=== PATIENT | female | born 1980 | race Two or more races ===

== ENCOUNTER 2024-10-20 15:30 | Outpatient (RCR) | payer MEDICAID, SELFPAY ==
--- NOTE | 2024-10-11 15:54 | PT.OIERPT ---
PT OP Initial Eval Patient Information Outpatient Physical Therapy Treatment Date: 10/11/24 Visit Reasons: Sciatica left side/lower limb Medical Diagnosis: M54.32 Treatment Dx #1: Back Pain Treatment Dx #2: Left LE Pain Start of Care: 10/11/24 Date of Onset: 1.5 years ago Smoking Status Smoking Status: Never smoker Initial Assessment Subjective: Pt is a 44 y/o female reports of chronic back pain with left LE numbness. Pt has limitation with work duties, standing, bending, lifting, chores, and performing recreational activities. No MRI has been done; according to patient provider plans to order MRI post physical therapy. Objective: L/S AROM: all motions are WFL except pain with extension Hip PROM: all motions are WNL Hip MMTs: grossly 3+/5 Special Test (+) CRISTÓBAL's (+) Vipul test Assessment: Pt demonstrate back pain with possible disc involvement leading to difficulty with ADLs. Pt will attempt physical therapy if pain persist Pt will be refer back to provider for further consultation. [employer] Goals 1) Increase L/S AROM WNL in 6 wks to be able to perform chores 2) Decrease back pain to 2/10 in 6 wks to be able to sit and stand more than 30 mins 3) Increase core strength WFL in 6 wks to be able to perform recreational activities 4) Increase hip MMTs grossly to 4-/5 in 6 wks to be able to walk more than 30 mins 5) Indep with HEP Treatment Plan 1) Manual Therapy 2) Therapeutic Activities 3) Therapeutic Exercises 4) Modalities (ice, heat, traction) Frequency and Duration: 2 x wk for 6 wks Certification Dates: 10/11/24 to 01/09/25 Procedure Charges OP PT Eval Mod Complex 30 minutes: Yes
--- NOTE | 2024-10-20 16:09 | PT.ODAYNRPT ---
PT Outpatient Daily Note OP Daily Note Outpatient Physical Therapy Treatment Date: 10/20/24 Visit Reasons: Sciatica left side/lower limb Subjective: Pt's back is okay, however, continues to have the pain down her leg. Objective: Please see flow chart for list of ther ex perfomed Assessment: tolerate exercises with minimal pain Plan: Continue with PT Length of Time (minutes) of Treatment: 30 Minutes Procedure Charges Therapeutic Exercise 30 minutes: Yes
== END 2024-10-22 23:59 | disposition home or self-care (01) ==
LOC: CPTX 15:30
PROVIDERS: PCP Physician Assistant; Referring Provider Physician Assistant; Visit Provider Physician Assistant
DX: M54.32 Sciatica, left side (principal)
CPT/HCPCS: 97110; 97162

== ENCOUNTER 2024-11-17 15:00 | Outpatient (RCR) | payer MEDICAID, SELFPAY ==
--- NOTE | 2024-10-27 15:56 | PT.ODAYNRPT ---
PT Outpatient Daily Note OP Daily Note Outpatient Physical Therapy Treatment Date: 10/27/24 Visit Reasons: BACK PAIN Subjective: Pt's back feels sore from last session. Today it feels good. Pt still notice intermittent pain down the left leg. Objective: Please see flow chart for list of ther ex performed Assessment: tolerate exercises performed with minimal pain Plan: Continue with PT Length of Time (minutes) of Treatment: 30 Minutes Procedure Charges Therapeutic Exercise 30 minutes: Yes
--- NOTE | 2024-11-17 15:36 | PT.ODAYNRPT ---
PT Outpatient Daily Note OP Daily Note Outpatient Physical Therapy Treatment Date: 11/17/24 Visit Reasons: BACK PAIN Subjective: Pt reports LBP and numbing sensation of L thigh. Objective: Please see flow sheet for ther ex list. Assessment: Pt responds to repeated lumbar extension with slight decrease in L thigh symptoms, pt encouraged to perform for HEP. Plan: Assess response to HEP. Continue with pOC. Length of Time (minutes) of Treatment: 30 Minutes Procedure Charges Therapeutic Exercise 30 minutes: Yes
== END 2024-11-19 23:59 | disposition home or self-care (01) ==
LOC: CPTX 15:00
PROVIDERS: PCP Physician Assistant; Referring Provider Physician Assistant; Visit Provider Physician Assistant
DX: M54.42 Lumbago with sciatica, left side (principal)
CPT/HCPCS: 97110

== ENCOUNTER 2024-12-20 16:00 | Outpatient (RCR) | payer MEDICAID, SELFPAY ==
--- NOTE | 2024-11-22 16:48 | PT.ODAYNRPT ---
PT Outpatient Daily Note OP Daily Note Outpatient Physical Therapy Treatment Date: 11/22/24 Visit Reasons: Back pain Subjective: Pt reports she has not been doing hEP as much as she would like but does notice some improvement in pain. Objective: Please see flow sheet for ther ex list. Assessment: Pt instructed on PPT exercise, able to demonstrate improved technique by placing B hand on low back for feedback . Plan: Continue with pOC. Length of Time (minutes) of Treatment: 30 Minutes Procedure Charges Therapeutic Exercise 30 minutes: Yes
--- NOTE | 2024-11-25 16:27 | PT.ODAYNRPT ---
PT Outpatient Daily Note OP Daily Note Outpatient Physical Therapy Treatment Date: 11/25/24 Visit Reasons: Back pain Subjective: Pt reports LBP progress is slow, notices slight decrease in LBP. Objective: Please see flow sheet for ther ex list. Assessment: Pt able to replicate repeated lumbar extension exercise with good technique indicating compliance with HEP. Plan: Continue with POC. Length of Time (minutes) of Treatment: 30 Minutes Procedure Charges Therapeutic Exercise 30 minutes: Yes
--- NOTE | 2024-12-02 15:39 | PT.ODAYNRPT ---
PT Outpatient Daily Note OP Daily Note Outpatient Physical Therapy Treatment Date: 12/02/24 Visit Reasons: Back pain Subjective: Pt reports LBP is ok today but two days ago she cleaned her bathroom and pain was high. Pt said it feels better today that it did the day she cleaned the restroom, just a little sore. Objective: Please see flow sheet for ther ex list. Assessment: Regressed interventions to accommodate reported pain and soreness. Plan: Continue with POC. Length of Time (minutes) of Treatment: 30 Minutes Procedure Charges Therapeutic Exercise 30 minutes: Yes
--- NOTE | 2024-12-09 16:35 | PT.ODAYNRPT ---
PT Outpatient Daily Note OP Daily Note Outpatient Physical Therapy Treatment Date: 12/09/24 Visit Reasons: Back pain Subjective: Pt reports low back pain fluctuates, progress with symptoms is slow. Pt had a follow up with doctor and doctor will be putting order for MRI of l/s. Objective: Please see flow sheet for ther ex list. Assessment: Slow progress with symptoms delaying interventions progression in clinic. Plan: Continu with POC. Length of Time (minutes) of Treatment: 30 Minutes Procedure Charges Therapeutic Exercise 30 minutes: Yes
--- NOTE | 2024-12-20 16:28 | PT.ODAYNRPT ---
PT Outpatient Daily Note OP Daily Note Outpatient Physical Therapy Treatment Date: 12/20/24 Visit Reasons: Back pain Subjective: Pt reports back main has been moderate and doing house chores aggravates symptoms. Objective: Please see flow sheet for ther ex list. Assessment: Modified interventions, avoiding thera band exercises to accommodate reported pain and soreness. Plan: Continue with POC. Length of Time (minutes) of Treatment: 30 Minutes Procedure Charges Therapeutic Exercise 30 minutes: Yes
== END 2024-12-20 23:59 | disposition home or self-care (01) ==
LOC: CPTX 16:00
PROVIDERS: PCP Physician Assistant; Referring Provider Physician Assistant; Visit Provider Physician Assistant
DX: M54.9 Dorsalgia, unspecified (principal); M54.32 Sciatica, left side
CPT/HCPCS: 97110

== ENCOUNTER 2025-01-03 15:30 | Outpatient (RCR) | payer MEDICAID, SELFPAY ==
--- NOTE | 2024-12-23 16:10 | PT.ODAYNRPT ---
PT Outpatient Daily Note OP Daily Note Outpatient Physical Therapy Treatment Date: 12/23/24 Visit Reasons: LBP Subjective: Pt reports back is doing better. Objective: Please see flow sheet for ther ex list. Assessment: Progression of core strengthening interventions completed with good technique. Plan: Continue with poC. Length of Time (minutes) of Treatment: 30 Minutes Procedure Charges Therapeutic Exercise 30 minutes: Yes
--- NOTE | 2024-12-27 16:23 | PT.ODAYNRPT ---
PT Outpatient Daily Note OP Daily Note Outpatient Physical Therapy Treatment Date: 12/27/24 Visit Reasons: LBP Subjective: Pt reports back is doing ok, notices some progress with symptoms but progress is not where she would like. pt continues to have pain and aggravating symptoms with performing certain house chores. Pt mentioned they ordered imaging waiting to schedule. Objective: Please see flow sheet for ther ex list. Assessment: Pt demonstrates good abdominal recruitment with de-rotation exercise, performs with good technique. Plan: Continue with pOC. Assess for note, pt has one visit left. Length of Time (minutes) of Treatment: 30 Minutes Procedure Charges Therapeutic Exercise 30 minutes: Yes
--- NOTE | 2025-01-03 15:56 | PT.ODS1RPT ---
PT OP Progress/Discharge Note Date of Service: 01/03/25 Progress Note/DC Note Progress Note/Discharge Note: DC Note Patient Information Visit Reasons: LBP Medical Diagnosis: M54.32 Treatment Dx #1: Back Pain Treatment Dx #2: Left LE Pain Service Discharge Date: 01/03/25 Status Subjective: Pt's back is better, however, still has hendricks and left LE numbness intermittently. Pt has been able to resume most ADLs with less limitation. At this time Pt will like to stop physical therapy and return back to provider for MRI. Objective: L/S AROM: all motions are WNL Hip PROM: all motions are WNL Hip MMTs: grossly 4-/5 Assessment: Pt demonstrate functional mobility and strength, however has plateau towards goals. Pt still reports of intermittent numbness down her left LE which will need further assessment to determine nature of pain. Recommend lumbar MRI to help rule in/out discogenic lesion. Pt was instructed on HEP last session and educated to continue exercises to maintain overall mobility. Pt performed all exercises safely, thank you for your referrals. Plan: D/C home with HEP and follow up with MD RAY Procedure Charges Therapeutic Exercise 30 minutes: Yes
== END 2025-01-19 23:59 | disposition home or self-care (01) ==
LOC: CPTX 15:30
PROVIDERS: PCP Physician Assistant; Referring Provider Physician Assistant; Visit Provider Physician Assistant
DX: M54.42 Lumbago with sciatica, left side (principal)
CPT/HCPCS: 97110